=== PATIENT | female | born 2000 | race Caucasian/White ===

== ENCOUNTER 2022-05-30 19:54 | Emergency (ER) | payer BC ==
[2022-05-30] MEDS ORDERED: ONDANSETRON 4 MG/2 ML VIAL IVP STA (20:20)
[2022-05-30] MEDS ORDERED: SODIUM CHLORIDE 0.9% 1,000 ML IV STA (20:20)
[2022-05-30] MEDS ORDERED: KETOROLAC 15 MG/ML VIAL IVP STA (20:20)
[2022-05-30] MEDS ORDERED: HYDROmorphone 1 MG/ML CARPUJECT IVP STA (20:20)
--- NOTE | 2022-05-30 20:21 | ED Physician Documentation ---
PD HPI ABD PAIN - Stated complaint Stated Complaint: NAUSEA/SHAKING/BACK & ABD PX LT SIDE - Chief complaint Chief Complaint: Abd Pain - History obtained from History obtained from: Patient - Additional information Additional information: 21-year-old woman with history of recurrent renal colic had sensation of UTI about 2 weeks ago and took Pyridium. Last night she developed severe left flank pain with shaking and nausea. Went to an urgent care today where she had and a renal ultrasound showing mildly dilated left ureter, no other abnormalities. She reportedly had blood work and urine done with negative findings except that she was treated for pyelonephritis with Cipro. She was not sent home with anything for pain continues to have severe pain. Review of Systems Ten Systems: 10 systems reviewed and negative Constitutional: reports: Chills, Sweats. denies: Fever Cardiac: denies: Chest pain / pressure, Palpitations Respiratory: denies: Dyspnea, Cough PD PAST MEDICAL HISTORY - Present Medications Home Medications: Ambulatory Orders Medication Instructions Recorded Confirmed HYDROcod/ACETAM 5/325 [[place] 5/325] 1 - 2 tab PO Q6H PRN #15 tablet 05/30/22 - Allergies Allergies/Adverse Reactions: Allergies Allergy/AdvReac Type Severity Reaction Status Date / Time clindamycin Allergy Hives Verified 05/30/22 20:04 Penicillins Allergy Hives Verified 05/30/22 20:04 PD ED PE NORMAL - Vitals Vital signs reviewed: Yes - General General: Alert and oriented X 3, No acute distress - Cardiac Cardiac: RRR, No murmur - Respiratory Respiratory: No respiratory distress, Clear bilaterally - Abdomen Abdomen: Normal bowel sounds, Soft, Non tender, Other (Modest left flank tenderness) - Derm Derm: Normal color, Warm and dry - Extremities Extremities: No edema, No calf tenderness / cord - Neuro Neuro: Alert and oriented X 3, Normal speech Results - Vitals Vitals: Vital Signs - 24 hr 05/30/22 05/30/22 20:01 20:41 Temperature 36.7 C Heart Rate 108 H 100 Respiratory 16 18 Rate Blood Pressure 126/83 H 132/82 H O2 Saturation 100 100 Oxygen O2 Source Room air - Labs Labs: Laboratory Tests 05/30/22 05/30/22 05/30/22 20:05 20:25 20:25 WBC 8.6 RBC 4.34 Hgb 12.1 Hct 37.3 MCV 85.9 MCH 27.9 MCHC 32.4 RDW 14.2 Plt Count 257 MPV 9.9 Neut # (Auto) 5.9 Lymph # (Auto) 1.6 [place] # (Auto) 0.9 Eos # (Auto) 0.2 Baso # (Auto) 0.0 Absolute Nucleated RBC 0.00 Nucleated RBC % 0.0 Sodium 138 Potassium 3.5 Chloride 107 Carbon Dioxide 23 Anion Gap 8.0 BUN 9 Creatinine 0.9 Estimated GFR (MDRD) 79 L Glucose 100 Calcium 8.9 Total Bilirubin 1.1 H AST 29 ALT 16 Alkaline Phosphatase 50 Total Protein 6.9 Albumin 4.1 Globulin 2.8 Albumin/Globulin Ratio 1.5 Urine Color YELLOW Urine Clarity SL. CLOUDY Urine pH 6.0 Ur Specific [place] >=1.030 H Urine Protein 30 H Urine Glucose (UA) NEGATIVE Urine Ketones NEGATIVE Urine Occult Blood SMALL H Urine Nitrite NEGATIVE Urine Bilirubin NEGATIVE Urine Urobilinogen 1 (NORMAL) Ur Leukocyte Esterase SMALL H Urine RBC TNTC H Urine WBC >25 H Ur Squamous Epith Cells FEW Squamous Urine Bacteria Few Ur Microscopic Review INDICATED Urine Culture Comments INDICATED Urine HCG, Qual NEGATIVE PD MEDICAL DECISION MAKING - ED course ED course: 21-year-old woman presents with left flank pain. Normal white count, afebrile, urinalysis with white cells but only small LE and no nitrate with few bacteriuria, this is unlikely to be consistent with infection and more consistent with pyuria related to renal colic given her history. She was pain- free after medications here. Departure - Departure Disposition: 01 Home, Self Care Clinical Impression: Renal colic on left side Condition: Good Record reviewed to determine appropriate education?: Yes Instructions: ED Stone Renal W Colic Prescriptions: HYDROcod/ACETAM 5/325 [[place] 5/325] 1 - 2 tab PO Q6H PRN #15 tablet PRN Reason: Pain Comments: As discussed, I think it is less likely that you have a kidney Infection and more likely just a kidney stone. I would continue the ciprofloxacin that schedule gave you out of an abundance of caution until the culture is done. Hopefully they will call you in a couple of days with culture results, if they do not you should see if you can look up the culture results on their portal. If no significant bacteria grows you can stop the antibiotic at that point. Call your doctor to arrange a follow-up appointment, make the next available appointment. In the interim, return anytime if worse or if new symptoms develop. I sent your prescription electronically to [facility] in [place]. I am prescribing a short course of narcotic pain medication for you. These are potentially dangerous and addictive medications that should be used carefully. These medications may constipate you. Take an boob-pgp-xhebbae stool softener (docusate) twice daily with plenty of water while taking these medications. If you go 24 hours without a bowel movement, take wxma-aiq-gwspzsd miralax, per package instructions. Do not drink or drive while taking these medications. If you received narcotic or sedating medications while in the emergency department, do not drive for 24 hours. Store this medication in a safe, secure place and out of reach of children. It is a violation of federal law to give or sell this medication to another person or to use in a manner other than prescribed. The ED will not refill narcotic prescriptions, including prescriptions lost or stolen. To dispose of unwanted medications: 1. [facility] at [address] in [place] has a medication drop box. They accept prescription medications (in pill form) Friday through Friday 9:00 a.m. to 5:00 p.m. 2. The [facility] Department accepts prescription medications (in pill form only) for disposal year round. Call for more information. 3. Contact the [facility] for the next [facility] sponsored prescription drug collection event. , [phone], or [phone]; Note that many narcotic pain relievers also contain Tylenol/acetaminophen. Please ensure that your total dose of acetaminophen from all sources does not exceed 3 g (3000 mg) per day.
[2022-05-30 20:31] LABS: BILIRUBIN,URINE NEGATIVE (NEGATIVE); GLUCOSE, URINE (UA) NEGATIVE (NEGATIVE); KETONES,URINE (UA) NEGATIVE (NEGATIVE); LEUKOCYTE ESTERASE, URINE SMALL (NEGATIVE); NITRITE,URINE NEGATIVE (NEGATIVE); OCCULT BLOOD,URINE SMALL (NEGATIVE); PROTEIN,URINE 30 mg/dL (NEGATIVE); UROBILINOGEN,URINE 1 (NORMAL) E.U./dL (NORMAL)
[2022-05-30 20:32] LABS: CLARITY,URINE SL. CLOUDY (CLEAR); HCG UR QUAL NEGATIVE
[2022-05-30 20:39] LABS: BACTERIA,URINE Few /HPF (None Seen); RBC,URINE TNTC /HPF (0-5); SQUAMOUS EPITHELIAL CELL,UR FEW Squamous (<= Few); WBC,URINE >25 /HPF (0-5)
[2022-05-30 20:44] LABS: BASOPHILS % (AUTO) 0.5 %; EOSINOPHILS # (AUTO) 0.2 10^3/uL (0.0-0.7); EOSINOPHILS % (AUTO) 2.3 %; HCT - HEMATOCRIT 37.3 % (37.0-47.0); HGB - HEMOGLOBIN 12.1 g/dL (12.0-16.0); LYMPHOCYTES # (AUTO) 1.6 10^3/uL (1.5-3.5); LYMPHOCYTES % (AUTO) 18.2 %; MEAN CORPUSCULAR HEMOGLOBIN 27.9 pg (27.0-31.0); MEAN CORPUSCULAR HGB CONC 32.4 g/dL (32.0-36.0); MEAN CORPUSCULAR VOLUME 85.9 fL (81.0-99.0); MEAN PLATELET VOLUME 9.9 fL (7.9-10.8); MONOCYTES # (AUTO) 0.9 10^3/uL (0.0-1.0); MONOCYTES % (AUTO) 10.7 %; NEUTROPHILS # (AUTO) 5.9 10^3/uL (1.5-6.6); NEUTROPHILS % (AUTO) 68.2 %; PLT - PLATELET COUNT 257 10^3/uL (130-450); RED BLOOD COUNT 4.34 10^6/uL (4.20-5.40); RED CELL DISTRIBUTION WIDTH 14.2 % (12.0-15.0); WHITE BLOOD COUNT 8.6 x10^3/uL (4.8-10.8)
[2022-05-30 20:47] LABS: ALBUMIN 4.1 g/dL (3.2-5.5); ALBUMIN/GLOBULIN RATIO 1.5 (1.0-2.2); BILIRUBIN,TOTAL 1.1 mg/dL (0.2-1.0); CALCIUM 8.9 mg/dL (8.5-10.3); CREATININE 0.9 mg/dL (0.4-1.0); POTASSIUM 3.5 mmol/L (3.5-5.0); TOTAL PROTEIN 6.9 g/dL (6.7-8.2)
[2022-05-30] MEDS ORDERED: HYDROcod/ACET 5/325 Prepack 4 PO STA (21:03)
[2022-05-30 21:39] VITALS: BP 120/70
== END 2022-05-30 21:39 | disposition home or self-care (01) ==
LOC: ED 19:54
DX: N23 Unspecified renal colic (principal)
CPT/HCPCS: 36415; 80053; 81001; 81025; 85025; 87086; 96374; 96375; 99283; 99284; J1170; 80048; 81003

== ENCOUNTER 2022-06-02 18:18 | Emergency (ER) | payer BC ==
[2022-06-02 18:37] LABS: BASOPHILS % (AUTO) 0.9 %; EOSINOPHILS # (AUTO) 0.2 10^3/uL (0.0-0.7); EOSINOPHILS % (AUTO) 4.3 %; HCT - HEMATOCRIT 37.6 % (37.0-47.0); HGB - HEMOGLOBIN 12.2 g/dL (12.0-16.0); LYMPHOCYTES # (AUTO) 1.6 10^3/uL (1.5-3.5); MEAN CORPUSCULAR HEMOGLOBIN 27.8 pg (27.0-31.0); MEAN CORPUSCULAR HGB CONC 32.4 g/dL (32.0-36.0); MEAN CORPUSCULAR VOLUME 85.6 fL (81.0-99.0); MEAN PLATELET VOLUME 9.6 fL (7.9-10.8); MONOCYTES # (AUTO) 0.5 10^3/uL (0.0-1.0); MONOCYTES % (AUTO) 10.9 %; NEUTROPHILS # (AUTO) 2.1 10^3/uL (1.5-6.6); NEUTROPHILS % (AUTO) 46.7 %; PLT - PLATELET COUNT 253 10^3/uL (130-450); RED BLOOD COUNT 4.39 10^6/uL (4.20-5.40); RED CELL DISTRIBUTION WIDTH 13.7 % (12.0-15.0); WHITE BLOOD COUNT 4.4 x10^3/uL (4.8-10.8)
[2022-06-02 18:50] LABS: ALBUMIN 3.9 g/dL (3.2-5.5); ALBUMIN/GLOBULIN RATIO 1.3 (1.0-2.2); BILIRUBIN,TOTAL 0.4 mg/dL (0.2-1.0); CALCIUM 9.2 mg/dL (8.5-10.3); CREATININE 0.7 mg/dL (0.4-1.0); POTASSIUM 3.7 mmol/L (3.5-5.0)
--- NOTE | 2022-06-02 20:17 | Ultrasound Report ---
PROCEDURE: Pelvic w/Transvag+Doppler Comp INDICATIONS: pelvic pain, L TECHNIQUE: Real-time scanning was performed of the pelvic organs, with image documentation. Additional endovagi nal scanning was necessary due to incomplete visualization of the adnexal and endometrial structures by transabdominal scanning. Doppler interrogation was performed of the ovaries bilaterally. COMPARISON: None. FINDINGS: No pathologic free abdominal or pelvic fluid. Uterus: Uterus is anteverted and normal in size at 7.9 x 3.6 x 5.2 cm. No myometrial masses. The end ometrium measures 6.8 mm in combined thickness. Normal uterine vascularity. Ovaries: Right ovary measures 2.6 x 2.2 x 2.8 cm for a volume of 8.0 cc. Contains a dominant follicl e with a daughter cyst. Normal blood flow to the right ovary. The left ovary measures 2.3 x 2.7 x 3.1 cm for a volume of 10.1 cc. There is also normal left ovarian follicular echotexture. There is a corpus luteum with peripheral vascularity as well as a second dom inant follicle including a daughter cyst. There is normal blood flow in the left ovary. No adnexal free fluid or suspicious mass. IMPRESSION: 1. Normal uterus and ovaries. No evidence of ovarian torsion. 2. No evidence of pathologic free fluid in the pelvis. 3. Preliminary results given by the behavior therapist to the ordering provider immediately following the udy. Reviewed by: Bee Marquez MD on 06/02/2022 8:16 PM PDT Approved by: Bee Marquez MD on 06/02/2022 8:16 PM PDT Station ID: [id number]
[2022-06-02 20:27] LABS: BILIRUBIN,URINE NEGATIVE (NEGATIVE); GLUCOSE, URINE (UA) NEGATIVE (NEGATIVE); KETONES,URINE (UA) NEGATIVE (NEGATIVE); LEUKOCYTE ESTERASE, URINE NEGATIVE (NEGATIVE); NITRITE,URINE NEGATIVE (NEGATIVE); OCCULT BLOOD,URINE LARGE (NEGATIVE); PH,URINE 5.5 PH (5.0-7.5); PROTEIN,URINE NEGATIVE (NEGATIVE); UROBILINOGEN,URINE 0.2 (NORMAL) E.U./dL (NORMAL)
[2022-06-02 20:32] LABS: CLARITY,URINE HAZY (CLEAR)
--- NOTE | 2022-06-02 20:39 | CT Report ---
PROCEDURE: Abdomen/Pelvis WO INDICATIONS: L flank pain, h/o renal stones TECHNIQUE: Noncontrast 5 mm thick sections acquired from the diaphragms to the symphysis. 5 mm coronal and sagi ttal reformats were then performed. For radiation dose reduction, the following was used: automated exposure control, adjustment of mA and/or kV according to patient size. COMPARISON: Pelvic ultrasound from the same date. FINDINGS: Image quality: Excellent. ABDOMEN: Lung bases: Lung bases are clear. Heart size is normal. Solid organs: Liver and spleen are normal in size. Gallbladder is within normal limits. Pancreas i s normal in contours. No adrenal nodules. Kidneys are normal in size, without hydronephrosis or nep hrolithiasis. Peritoneum and bowel: There is no bowel obstruction. Significant fecal stasis throughout the colon is seen. No bowel wall thickening or mesenteric fat stranding. Appendix is not definitively identified. No abnormal bowel wall thickening or mesenteric fat stranding is noted in right lower quadrant abdom en. No abscess collection. No free fluid of free air. Nodes and vessels: No retroperitoneal or mesenteric adenopathy by size criteria. Aorta and inferior vena cava are normal in caliber. Miscellaneous: No ventral hernias. PELVIS: Genitourinary: Bladder wall thickness is normal. Miscellaneous: No inguinal hernias or adenopathy. Bones: No suspicious bony lesions. No vertebral body compression fractures. IMPRESSION: 1. No renal stone or hydronephrosis. Normal-appearing urinary bladder. 2. No bowel obstruction. No secondary CT signs of acute appendicitis. No free fluid of free air. Mild to moderate constipation. Reviewed by: Nestor Landon MD on 06/02/2022 8:38 PM PDT Approved by: Nestor Landon MD on 06/02/2022 8:38 PM PDT Station ID: [id number]
[2022-06-02 20:41] LABS: BACTERIA,URINE Few /HPF (None Seen); SQUAMOUS EPITHELIAL CELL,UR FEW Squamous (<= Few); WBC,URINE 0-3 /HPF (0-5)
--- NOTE | 2022-06-02 20:54 | ED Physician Documentation ---
History of Present Illness - Stated complaint Stated Complaint: BACK PX/L ABD PX - Chief complaint Chief Complaint: Abd Pain - History obtained from History obtained from: Patient - History of Present Illness Timing: How many days ago Pain level max: 9 Pain level now: 5 - Additonal information Additional information: Patient is a 21-year-old female who presents to the emergency department with pelvic pain. This started several days ago. She was seen at an urgent care at [facility] diagnosed with a UTI and started on ciprofloxacin. She was then seen here, potential ureteral stone as she has had stones in the past. CT scan was not performed at that time but she was started on pain medication. She states t hat most of the pain at that time was on the left side. She is now having pain in the right pelvic area as well. She has been on Nexplanon for about 2 months now. She states that she did have kidney stones when she was living in [place]. She has not had any changes in sexual partners. No vaginal bleeding or discharge. The Vicodin is controlling the pain, but she is concerned about the continued pain. No fevers. No chills. Does have a history of ovarian cysts as well. Review of Systems Ten Systems: 10 systems reviewed and negative Constitutional: denies: Fever, Chills Ears: denies: Ear pain Nose: denies: Rhinorrhea / runny nose, Congestion Respiratory: denies: Dyspnea, Cough, Wheezing GI: denies: Nausea, Vomiting, Diarrhea, Hematemesis, Bloody / black stool : denies: Dysuria, Frequency, Hesitancy Skin: denies: Rash Musculoskeletal: denies: Neck pain, Back pain Neurologic: denies: Headache PD PAST MEDICAL HISTORY - Past Medical History Past Medical History: Yes SURGICAL PHYSICIAN ASSISTANT: Ovarian cysts : Kidney stones - Past Surgical History Past Surgical History: No - Present Medications Home Medications: Ambulatory Orders Medication Instructions Recorded Confirmed HYDROcod/ACETAM 5/325 [[place] 5/325] 1 - 2 tab PO Q6H PRN #15 tablet 05/30/22 HYDROcod/ACETAM 5/325 [[place] 5/325] 1 - 2 ea PO Q6H PRN #20 tablet 06/02/22 polyethylene glycoL 3350 [Miralax] 17 gm PO DAILY PRN #1 ml 06/02/22 - Allergies Allergies/Adverse Reactions: Allergies Allergy/AdvReac Type Severity Reaction Status Date / Time clindamycin Allergy Hives Verified 05/30/22 20:04 Penicillins Allergy Hives Verified 05/30/22 20:04 - Social History Does the pt smoke?: No Smoking Status: Never smoker Does the pt drink ETOH?: Yes Does the pt have substance abuse?: No - Immunizations Immunizations are current?: Yes - POLST Patient has POLST: No PD ED PE NORMAL - Vitals Vital signs reviewed: Yes - General General: Alert and oriented X 3, No acute distress, Well developed/nourished - HEENT HEENT: PERRL, Moist mucous membranes - Neck Neck: Supple, no meningeal sign - Cardiac Cardiac: RRR, Strong equal pulses - Respiratory Respiratory: No respiratory distress, Clear bilaterally - Abdomen Abdomen: Soft, Non distended, Other (Tender palpation left and right lower quadrants, mainly deep in the pelvis. No peritoneal signs) - Female Female : Pt declined - Back Back: No CVA TTP - Derm Derm: Warm and dry - Extremities Extremities: No edema - Neuro Neuro: Alert and oriented X 3 - Psych Psych: Normal mood, Normal affect Results - Vitals Vitals: Vital Signs - 24 hr 06/02/22 06/02/22 18:23 21:24 Temperature 37.3 C Heart Rate 89 78 Respiratory 18 18 Rate Blood Pressure 127/78 122/77 O2 Saturation 100 100 Oxygen O2 Source Room air - Labs Labs: Laboratory Tests 06/02/22 06/02/22 06/02/22 18:32 18:32 20:16 WBC 4.4 L RBC 4.39 Hgb 12.2 Hct 37.6 MCV 85.6 MCH 27.8 MCHC 32.4 RDW 13.7 Plt Count 253 MPV 9.6 Neut # (Auto) 2.1 Lymph # (Auto) 1.6 [place] # (Auto) 0.5 Eos # (Auto) 0.2 Baso # (Auto) 0.0 Absolute Nucleated RBC 0.00 Nucleated RBC % 0.0 Sodium 137 Potassium 3.7 Chloride 104 Carbon Dioxide 26 Anion Gap 7.0 BUN 8 Creatinine 0.7 Estimated GFR (MDRD) 106 Glucose 144 H Calcium 9.2 Total Bilirubin 0.4 AST 17 ALT 12 Alkaline Phosphatase 46 Total Protein 7.0 Albumin 3.9 Globulin 3.1 Albumin/Globulin Ratio 1.3 Lipase 24 Urine Color YELLOW Urine Clarity HA[place] Urine pH 5.5 Ur Specific [place] >=1.030 H Urine Protein NEGATIVE Urine Glucose (UA) NEGATIVE Urine Ketones NEGATIVE Urine Occult Blood LARGE H Urine Nitrite NEGATIVE Urine Bilirubin NEGATIVE Urine Urobilinogen 0.2 (NORMAL) Ur Leukocyte Esterase NEGATIVE Urine RBC 6-10 H Urine WBC 0-3 Ur Squamous Epith Cells FEW Squamous Urine Bacteria Few Ur Microscopic Review INDICATED Urine Culture Comments NOT INDICATED - Rads (name of study) CT abdomen pelvis Radiology: Final report received, EMP read contemporaneously, See rad report Pelvic ultrasound Radiology: Final report received, EMP read contemporaneously, See rad report PD MEDICAL DECISION MAKING - ED course Complexity details: reviewed results, re-evaluated patient, considered differ ential, d/w patient, d/w family ED course: Unclear etiology of the patient's symptoms. She does have a dominant follicle with a daughter cysts and the bilateral ovaries. Normal blood flow in the ovaries. No evidence of ureteral stone. Patient declines a pelvic exam. We will place on pain medication for home and have her follow-up with gynecology. She states that she had seen a refrigeration supervisor who told her that there could be an issue with her kidneys, but she is unsure what the refrigeration supervisor told her. Recommend that she follow-up closely with her primary care provider to have her care coordinated and obtain records from [place] if able. Patient counseled regarding signs and symptoms for which I believe and urgent re-evaluation would be necessary. Patient with good understanding of and agreement to plan and is comfortable going home at this time This document was made in part using voice recognition software. While efforts are made to proofread this document, sound alike and grammatical errors may occur. Uterus: Uterus is anteverted and normal in size at 7.9 x 3.6 x 5.2 cm. No myometrial masses. The endometrium measures 6.8 mm in combined thickness. Normal uterine vascularity. Ovaries: Right ovary measures 2.6 x 2.2 x 2.8 cm for a volume of 8.0 cc. Contains a dominant follicle with a daughter cyst. Normal blood flow to the right ovary. The left ovary measures 2.3 x 2.7 x 3.1 cm for a volume of 10.1 cc. There is also normal left ovarian follicular echotexture. There is a corpus luteum with peripheral vascularity as well as a second dominant follicle including a daughter cyst. There is normal blood flow in the left ovary. IMPRESSION: 1. Normal uterus and ovaries. No evidence of ovarian torsion. 2. No evidence of pathologic free fluid in the pelvis. 3. Preliminary results given by the occupational health nurse supervisor to the ordering provider immediately following the study. IMPRESSION: 1. No renal stone or hydronephrosis. Normal-appearing urinary bladder. 2. No bowel obstruction. No secondary CT signs of acute appendicitis. No free fluid of free air. Mild to moderate constipation. Departure - Departure Disposition: 01 Home, Self Care Clinical Impression: Pelvic pain in female Ovarian cyst Qualifiers: Laterality: bilateral Qualified Code(s): N83.201 - Unspecified ovarian cyst, right side Condition: Good Instructions: ED Cyst Ovarian, ED Pelvic Pain [facility] Follow-Up: Kulwant Romero MD [Provider Admit Priv/Credential] - ALEJANDRO GUTHRIE DO [Physician No Access] - [facility] [Provider Group] [facility] [Provider Group] [facility] [Provider Group] [facility] [Provider Group] Prescriptions: polyethylene glycoL 3350 [Miralax] 17 gm PO DAILY PRN #1 ml PRN Reason: Constipation HYDROcod/ACETAM 5/325 [[place] 5/325] 1 - 2 ea PO Q6H PRN #20 tablet PRN Reason: Pain Comments: Please follow-up with gynecology and urology for further care. I have placed the results of your testing from [facility] below. It is unclear what is causing your pain, however it could be due to your ovarian cysts. Your prescriptions were sent to [facility] in [place]. I am prescribing a short course of narcotic pain medication for you. These are potentially dangerous and addictive medications that should be used carefully. These medications may constipate you. Take an mvfn-gqz-wnzinfe stool softener (docusate) twice daily with plenty of water while taking these medications. If you go 24 hours without a bowel movement, take jbcd-anv-xoxkubr miralax, per package instructions. Do not drink or drive while taking these medications. If you received narcotic or sedating medications while in the emergency department, do not drive for 24 hours. Store this medication in a safe, secure place and out of reach of children. It is a violation of federal law to give or sell this medication to another person or to use in a manner other than prescribed. The ED will not refill narcotic prescriptions, including prescriptions lost or stolen. To dispose of unwanted medications: 1. [facility] at [address] in [place] has a medication drop box. They accept prescription medications (in pill form) Friday through Friday 9:00 a.m. to 5:00 p.m. 2. The [facility] Police Department accepts prescription medications (in pill form only) for disposal year round. Call for more information. 3. Contact the [facility] for the next [facility] sponsored prescription drug collection event. , [phone], or [phone]; Pelvic Ultrasound: TECHNIQUE: Real-time scanning was performed of the pelvic organs, with image documentation. Additional endovaginal scanning was necessary due to incomplete visualization of the adnexal and endometrial st ructures by transabdominal scanning. Doppler interrogation was performed of the ovaries bilaterally. COMPARISON: None. FINDINGS: No pathologic free abdominal or pelvic fluid. Uterus: Uterus is anteverted and normal in size at 7.9 x 3.6 x 5.2 cm. No myometrial masses. The endometrium measures 6.8 mm in combined thickness. Normal uterine vascularity. Ovaries: Right ovary measures 2.6 x 2.2 x 2.8 cm for a volume of 8.0 cc. Contains a dominant follicle with a daughter cyst. Normal blood flow to the right ovary. The left ovary measures 2.3 x 2.7 x 3.1 cm for a volume of 10.1 cc. There is also normal left ovarian follicular echotexture. There is a corpus luteum with peripheral vascularity as well as a second dominant follicle including a daughter cyst. There is normal blood flow in the left ovary. No adnexal free fluid or suspicious mass. IMPRESSION: 1. Normal uterus and ovaries. No evidence of ovarian torsion. 2. No evidence of pathologic free fluid in the pelvis. CT ABDOMEN and PELVIS ABDOMEN: Lung bases: Lung bases are clear. Heart size is normal. Solid organs: Liver and spleen are normal in size. Gallbladder is within normal limits. Pancreas is normal in contours. No adrenal nodules. Kidneys are normal in size, without hydronephrosis or nephrolithiasis. Peritoneum and bowel: There is no bowel obstruction. Significant fecal stasis throughout the colon is seen. No bowel wall thickening or mesenteric fat stranding. Appendix is not definitively identified. No abnormal bowel wall thickening or mesenteric fat stranding is noted in right lower quadrant abdomen. No abscess collection. No free fluid of free air. Nodes and vessels: No retroperitoneal or mesenteric adenopathy by size criteria. Aorta and inferior vena cava are normal in caliber. Miscellaneous: No ventral hernias. PELVIS: Genitourinary: Bladder wall thickness is normal. Miscellaneous: No inguinal hernias or adenopathy. Bones: No suspicious bony lesions. No vertebral body compression fractures. IMPRESSION: 1. No renal stone or hydronephrosis. Normal-appearing urinary bladder. 2. No bowel obstruction. No secondary CT signs of acute appendicitis. No free fl uid of free air. Mild to moderate constipation. Discharge Date/Time: 06/02/22 21:24
[2022-06-02 21:25] VITALS: BP 122/77
== END 2022-06-02 21:24 | disposition home or self-care (01) ==
LOC: ED 18:18
DX: R10.2 Pelvic and perineal pain (principal); N83.201 Unspecified ovarian cyst, right side
CPT/HCPCS: 36415; 80053; 81001; 81003; 83690; 85025; 87086; 93975; 99284